=== PATIENT | male | born 1995 | race Caucasian/White ===

== ENCOUNTER 2016-12-05 14:12 | Emergency (ER) | payer BC ==
[2016-12-05 14:35] VITALS: BP 147/80
--- NOTE | 2016-12-05 14:56 | UC ---
Abdominal Pain Male HPI - HPI Summary HPI Summary: complaint of LUQ , LLQ pain that started approx7 days ago radiates into rest of abdomen and suprapubic region went to health services 3 days ago and was told it was muscular pain and if it didn't improve to be seen in ED having loose bowel movements for 7 day- denies blood in stool feels nauseated and has vomited 1x day for a week his urine is darker than normal for several weeks when he ejaculates he is having pain in his testicles that started 8-9 months ago- had testicular workup that was negative denies fever and chills, denies pain with urination took some motrin without relief yesterday - History of Current Complaint Chief Complaint: UCGI Stated Complaint: ABDOMINAL/SIDE FLANK PAIN Time Seen by Provider: 12/05/16 14:48 Hx Obtained From: Patient - Allergies/Home Medications Allergies/Adverse Reactions: Allergies Allergy/AdvReac Type Severity Reaction Status Date / Time No Known Allergies Allergy Verified 12/05/16 14:33 Home Medications: Home Medications Albuterol HFA INHALER* [Ventolin HFA Inhaler*] 1 - 2 puff INH Q4H PRN 12/05/16 [ History Confirmed 12/05/16] Fluticasone-Salmeterol 100-50* [Advair Diskus 100-50*] 1 puff INH BID 12/05/16 [ History Confirmed 12/05/16] Montelukast Sodium TAB* [Singulair 10 MG TAB*] 10 mg PO DAILY 12/05/16 [History Confirmed 12/05/16] PMH/Surg Hx/FS Hx/Imm Hx Previously Healthy: Yes Respiratory History Of: Reports: Asthma - Never Intubated - Surgical History Surgical History: None - Family History Known Family History: Negative: Cardiac Disease, Hypertension, Diabetes - Social History Occupation: Student Lives: With Family Alcohol Use: 7-10 drinks three times weekly Substance Use Type: Marijuana, Prescribed, Other Substance Use Comment - Amount & Last Used: Marijuana every other day; Sporatic Use of Xanax, LSD, Hydrocodone Smoking Status (MU): Current Some Day Smoker Type: Cigarettes Length of Time of Smoking/Using Tobacco: Since Age 14 Have You Smoked in the Last Year: Yes - Immunization History Most Recent Influenza Vaccination: Not the Season Review of Systems Constitutional: Negative Skin: Negative Eyes: Negative ENT: Negative Respiratory: Negative Cardiovascular: Negative Gastrointestinal: Abdominal Pain, Vomiting Genitourinary: Negative Motor: Negative Neurovascular: Negative Musculoskeletal: Negative Neurological: Negative Psychological: Negative All Other Systems Reviewed And Are Negative: Yes Physical Exam Triage Information Reviewed: Yes Appearance: No Pain Distress, Well-Nourished Vital Signs: Initial Vital Signs Temp 99.1 F 12/05/16 14:21 Pulse 80 12/05/16 14:21 Resp 18 12/05/16 14:21 BP 147/80 12/05/16 14:21 Pulse Ox 100 12/05/16 14:21 Vital Signs Reviewed: Yes Eyes: Positive: Conjunctiva Clear ENT: Positive: Pharynx normal, TMs normal Neck: Positive: No Lymphadenopathy Respiratory: Positive: Lungs clear, Normal breath sounds, No respiratory distress, No accessory muscle use Cardiovascular: Positive: RRR, No Murmur, Pulses Normal Abdomen Description: Positive: No Organomegaly, Soft, CVA Tenderness (L), Other : - LUQ/LLQ pain. Negative: CVA Tenderness (R), Distended, Guarding Bowel Sounds: Positive: Present Musculoskeletal: Positive: No Edema Neurological Exam: Normal Psychological Exam: Normal Skin Exam: Normal Skin: Positive: Other - - no penile lesionspr discharge- testciles non tender no lumps, no inguinal hernias Abd Pain Male Course/Dx - Course Course Of Treatment: exam completed. d/t LUQ/LLQ pain-alf testicular pain will send to higher level of care for further evaluation and treatment - Differential Dx/Clinical Impression Differential Diagnosis/HQI/PQRI: Bowel Obstruction, Testicular Torsion, Ureteral Stone, Urinary Tract Infection Provider Diagnoses: LUQ/LLQ pain. testicular pain. elevated blood pressure - Physician Notification/Consults Discussed Patient Care With: Dr Garcia Time Discussed With Above Provider: 15:09 Discharge - Discharge Plan Condition: Stable Disposition: [facility]
== END 2016-12-05 15:20 | disposition short-term general hospital (02) ==
LOC: UCCORT 14:12
DX: R10.9 Unspecified abdominal pain (principal); N50.819 Testicular pain, unspecified; R03.0 Elevated blood-pressure reading, without diagnosis of hypertension; F12.10 Cannabis abuse, uncomplicated; F17.210 Nicotine dependence, cigarettes, uncomplicated
CPT/HCPCS: 81003; 87491; 87591; 99202; G0463